=== PATIENT | female | born 1995 | race Caucasian/White ===

== ENCOUNTER 2017-07-24 11:43 | Emergency (ER) | payer BC, OTHER ==
[2017-07-24] MEDS ORDERED: Ketorolac INJ* 30 MG/ML 1 ML VIAL IV PUSH ONE (12:21)
[2017-07-24] MEDS ORDERED: diPHENhydraMINE IV* 50 MG/ML 1 ml VIAL (BENADRYL) IV ONE (12:22)
[2017-07-24] MEDS ORDERED: NS 0.9% 1000 ML* 1,000 ML IV ONE (12:22)
--- NOTE | 2017-07-24 12:38 | ED ---
HPI Chest Pain - HPI Summary HPI Summary: 22F presents with chest pain for 2 weeks. She states it started with a generalized headache. She states then she develop sternal chest pain and mid upper back pain. She states the two pains are not related. The back pain feels muscular. She denies any fever or neck stiffness. no photophobia. no sinus pressure, sore throat, abdominal pain, n/v. She took ibuprofen without relief. does not have history of headaches. has history of PE. no SOB. no history of HTN or DM. is on control. grandfather has a fib. used to smoke. She denies any cough. - History of Current Complaint Chief Complaint: EDChestWallPain Time Seen by Provider: 07/24/17 12:05 Hx Last Menstrual Period: Oct 27, 2015 Pain Intensity: 5 - Allergy/Home Medications Allergies/Adverse Reactions: Allergies Allergy/AdvReac Type Severity Reaction Status Date / Time No Known Allergies Allergy Verified 12/20/15 10:20 PMH/Surg Hx/FS Hx/Imm Hx Endocrine/Hematology History: Denies: Hx Anticoagulant Therapy, Hx Diabetes, Hx Thyroid Disease Comment Only: Other Endocrine/Hematological Disorders - anemia Cardiovascular History: Reports: Other Cardiovascular Problems/Disorders - PE 2011 Denies: Hx Congestive Heart Failure, Hx Deep Vein Thrombosis, Hx Hypertension , Hx Myocardial Infarction, Hx Pacemaker/ICD Respiratory History: Denies: Hx Asthma, Hx Chronic Obstructive Pulmonary Disease (COPD), Hx Lung Cancer, Hx Pneumonia, Hx Pulmonary Embolism GI History: Denies: Hx Gall Bladder Disease, Hx Gastrointestinal Bleed, Hx Ulcer, Hx Urosepsis History: Reports: Other Problems/Disorders - HX Ectopic Denies: Hx Kidney Stones, Hx Renal Disease Sensory History: Reports: Hx Contacts or Glasses - for driving/TV Opthamlomology History: Reports: Hx Contacts or Glasses - for driving/TV Neurological History: Denies: Hx Dementia, Hx Migraine, Hx Seizures, Hx Transient Ischemic Attacks (TIA) Psychiatric History: Denies: Hx Anxiety, Hx Depression, Hx Schizophrenia, Hx Bipolar Disorder - Surgical History Surgery Procedure, Year, and Place: 2011; ganglion cyst right wrist removed 3-4 years ago;. ectopic , left fallopian tube removed Hx Anesthesia Reactions: No Infectious Disease History: No Infectious Disease History: Denies: Hx Clostridium Difficile, Hx Hepatitis, Hx Human Immunodeficiency Virus (HIV), Hx of Known/Suspected MRSA, Hx Shingles, Hx Tuberculosis, Hx Known/ Suspected VRE, Hx Known/Suspected VRSA, History Other Infectious Disease, Traveled Outside the [place] in Last 30 Days - Family History Known Family History: Positive: None, Cardiac Disease - Social History Alcohol Use: Rare Substance Use Type: Reports: None Hx Tobacco Use: Yes Smoking Status (MU): Former Smoker Type: Cigarettes Amount Used/How Often: 1/4 PPD Length of Time of Smoking/Using Tobacco: 5 years Have You Smoked in the Last Year: Yes Review of Systems Negative: Fever Positive: Chest Pain Negative: Shortness Of Breath, Cough Negative: Abdominal Pain Positive: Myalgia - back pain Positive: Headache All Other Systems Reviewed And Are Negative: Yes Physical Exam Triage Information Reviewed: Yes Vital Signs On Initial Exam: Initial Vitals Temp Pulse Resp BP Pulse Ox 97.1 F 78 20 112/72 100 07/24/17 11:47 07/24/17 11:47 07/24/17 11:47 07/24/17 11:47 07/24/17 11:47 Vital Signs Reviewed: Yes Appearance: Positive: Well-Appearing Skin: Positive: Warm, Dry Head/Face: Positive: Normal Head/Face Inspection Eyes: Positive: Normal, EOMI, HERNANDO, Conjunctiva Clear ENT: Positive: Normal ENT inspection, Pharynx normal, TMs normal Neck: Positive: Supple, Nontender, No Lymphadenopathy. Negative: Nuchal Rigidity Respiratory/Lung Sounds: Positive: Clear to Auscultation, Breath Sounds Present , Other - tenderness chest wall Cardiovascular: Positive: Normal, RRR Abdomen Description: Positive: Nontender, Soft Bowel Sounds: Positive: Present Musculoskeletal: Positive: Other - tenderness back upper no midline tenderness Neurological: Positive: Sensory/Motor Intact, Alert, Oriented to Person Place, Time, CN Intact II-III - Estella Coma Scale Coma Scale Total: 15 Diagnostics - Vital Signs Vital Signs Temp Pulse Resp BP Pulse Ox 07/24/17 11:47 97.1 F 78 20 112/72 100 - Laboratory Result Diagrams: 07/24/17 12:30 07/24/17 12:30 Lab Statement: Any lab studies that have been ordered have been reviewed, and results considered in the medical decision making process. - Radiology chest Xray Interpretation: No Acute Changes Radiology Interpretation Completed By: Radiologist - EKG No standard instances Cardiac Rate: NL EKG Rhythm: Sinus Rhythm ST Segment: Normal EKG Interpretation: normal EKG Chest Pain Course/Dx - Course Course Of Treatment: 22F presents with chest pain for 2 weeks. She states it started with a generalized headache. She states then she develop sternal chest pain and mid upper back pain. She states the two pains are not related. The back pain feels muscular. She denies any fever or neck stiffness. no photophobia. no sinus pressure, sore throat, abdominal pain, n/v. She took ibuprofen without relief. does not have history of headaches. has history of PE. no SOB. no history of HTN or DM. is on control. grandfather has a fib. used to smoke. on exam reproducible chest pain, lungs CTA. normal neuro exam. chest xray and EKG normal. neg troponin and d-dimer. gave toradol and benadryl and headache improved. labs normal so will have follow up with primary. patient understands and agrees with plan. - Chest Pain Differential Diagnosis/HQI/PQRI: Chest Wall, Lower Respiratory Infection, Pulmonary Embolism - Diagnoses Provider Diagnoses: Chest pain, Back pain, Headache Discharge - Discharge Plan Condition: Good Disposition: HOME Referrals: Roger Blevins MD [Primary Care Provider] - Additional Instructions: Take Tylenol or ibuprofen every 6 hours Follow up with primary within 5 days Return to ED if develop any new or worsening symptoms
[2017-07-24 12:56] LABS: Hematocrit 39 % (35-47); Mean Corpuscular HGB Conc 33 g/dl (31-36); Mean Corpuscular Hemoglobin 30 pg (27-31); Mean Corpuscular Volume 89 fL (80-97); Mean Platelet Volume 10 um3 (7.4-10.4); Red Blood Count 4.38 10^6/ul (4.0-5.4); Red Cell Distribution Width 13 % (10.5-15); White Blood Count 7.8 10^3/ul (3.5-10.8)
[2017-07-24 13:11] LABS: Albumin 4.5 g/dL (3.2-5.2); EGFR African American 118.4 (>60); EGFR Non-African American 92.1 (>60); Globulin 3.2 g/dL (2-4); Potassium 4.5 mmol/L (3.5-5.0); Total Bilirubin 0.4 mg/dL (0.2-1.0); Total Protein 7.7 g/dL (6.4-8.9); Troponin I 0.01 ng/mL (<0.04)
--- NOTE | 2017-07-24 13:15 | RAD ---
INDICATION: Chest pain COMPARISON: Chest x-ray November 01, 2009 TECHNIQUE: PA and lateral dual-energy views were obtained. FINDINGS: Bones/Soft Tissues: There are no acute bony findings. Cardiomediastinal: The cardiomediastinal silhouette is normal. Lungs: There are no infiltrates. Pleura: There are no pleural effusions. Other: None IMPRESSION: NO ACTIVE DISEASE.
[2017-07-24 14:26] VITALS: BP 98/59
== END 2017-07-24 14:35 | disposition home or self-care (01) ==
LOC: ED 11:43
DX: R07.9 Chest pain, unspecified (principal); R51 Headache; Z87.891 Personal history of nicotine dependence; Z82.49 Family history of ischemic heart disease and other diseases of the circulatory system; Z86.711 Personal history of pulmonary embolism
CPT/HCPCS: 36415; 71020; 80053; 84484; 85025; 85379; 86141; 86618; 93005; 96360; 96374; 96375; 99282; J1200; J1885